=== PATIENT | male | born 1970 | race African-American/Black ===

== ENCOUNTER 2020-06-18 08:43 | Outpatient (CLI) | payer BC ==
--- NOTE | 2020-06-18 11:50 | MRI ---
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 FINDINGS: The lumbar vertebra maintain normal height and alignment. Degenerative disc changes are noted at L5-S1 with loss of disc space at this level. The other disc spaces are preserved and exhibit normal signal. At L5-S1, there is a central disc protrusion which indents the anterior thecal sac. This impinges on and mildly displaces both traversing S1 nerve roots. There is facet hypertrophy. No significant centr al canal stenosis. Mild bilateral foraminal narrowing due to facet hypertrophy. L4-5: Mild broad based disc bulge flattens the anterior thecal sac. Moderate facet and ligamentous h ypertrophy with posterior epidural fat. These changes result in mild central canal stenosis. No signi ficant foraminal stenosis. No significant disc bulge at L3-4, L2-3, or L1-2. There is mild facet arthrosis at these levels witho ut significant central canal or foraminal stenosis. IMPRESSION: Degenerative disc changes at L5-S1 with central disc protrusion indenting the anterior thecal sac as described above. POS: OFF
== END 2020-06-18 08:44 | disposition home or self-care (01) ==
LOC: SCSMRI 08:43
PROVIDERS: ATTEND Specialist
DX: M51.16 Intervertebral disc disorders with radiculopathy, lumbar region (principal); M51.27 Other intervertebral disc displacement, lumbosacral region; M51.37 Other intervertebral disc degeneration, lumbosacral region
CPT/HCPCS: 72148